=== PATIENT | male | born 1950 | race Caucasian/White ===

== ENCOUNTER 2025-04-27 23:09 | Emergency (ER) | payer MEDICARE, OTHER ==
[~2025-04-27] VITALS: Ht 170.2 cm; Wt 78.0 kg
[2025-04-27] MEDS ORDERED: SODI126M NS (23:50)
[2025-04-27] MEDS ORDERED: OXYM15MI4 NS (23:50)
[2025-04-28] MEDS ORDERED: OXYMETAZOLINE HCL NASAL SPRAY 30 ML BOTTLE NS ONE (00:04)
[2025-04-28] MEDS: OXYMETAZOLINE HCL NASAL SPRAY 30 ML BOTTLE NS ONE (00:05)
[2025-04-28 00:43] VITALS: BP 134/77; TEMP 98.3; O2SAT 98
== END 2025-04-28 00:43 | disposition home or self-care (01) ==
LOC: ER 23:15
DX: R04.0 Epistaxis (principal); F17.200 Nicotine dependence, unspecified, uncomplicated; E11.9 Type 2 diabetes mellitus without complications; I25.10 Atherosclerotic heart disease of native coronary artery without angina pectoris; Z79.02 Long term (current) use of antithrombotics/antiplatelets; Z95.1 Presence of aortocoronary bypass graft; Z95.5 Presence of coronary angioplasty implant and graft